=== PATIENT | male | born 1955 | race Caucasian/White ===

== ENCOUNTER 2020-10-24 17:40 | Emergency (ER) | payer OTHER, MEDICAID ==
[~2020-10-24] VITALS: Ht 165.1 cm; Wt 64.0 kg
[2020-10-24] MEDS ORDERED: PROMETHAZINE HCL 25MG TABLET PO ONE (18:30)
[2020-10-24] MEDS ORDERED: HYDROCODONE/ACETAMINOPHEN 5/325MG TABLET PO ONE (18:30)
[2020-10-24] MEDS ORDERED: DIPHENHYDRAMINE 25MG CAPSULE PO ONE (18:30)
[2020-10-24] MEDS ORDERED: KETOROLAC 15MG/ML VIAL IV ONE (18:30)
[2020-10-24 19:10] LABS: BASOPHILS % 0.7 % (0.0-2.0); EOSINOPHILS % 0.3 % (0.0-5.0); HEMATOCRIT. 42.1 % (42.0-52.0); LYMPHOCYTES % 30.6 % (20.0-50.0); MEAN CORPUSCULAR HEMOGLOBIN 24.5 pg (28.0-32.0); MEAN CORPUSCULAR VOLUME 73.3 fL (80.0-94.0); MEAN PLATELET VOLUME 8.9 fl (7.4-10.4); MONOCYTES % 8.6 % (2.0-8.0); NEUTROPHILS % 59.8 % (40.0-76.0); PLATELET 331 x1000/uL (130-400); RED BLOOD CELL COUNT 5.74 mill/uL (4.7-6.1); RED CELL DISTRIBUTION WIDTH 21.1 % (11.6-14.6)
[2020-10-24 19:15] LABS: CHLORIDE 102 mEq/L (98-107)
[2020-10-24 19:18] LABS: PROTHROMBIN TIME 11.1 sec (9.6-11.0)
[2020-10-24 19:22] LABS: ETHANOL BLOOD < 10 mg/dL
[2020-10-24 19:24] LABS: LDL CHOLESTEROL 162 mg/dL (5-100)
[2020-10-24 20:19] LABS: CLARITY URINE CLEAR (CLEAR); COLOR URINE YELLOW (YELLOW); KETONES URINE NEGATIVE (NEGATIVE); LEUKOCYTE ESTERASE URINE NEGATIVE (NEGATIVE); NITRITE URINE NEGATIVE (NEGATIVE); OCCULT BLOOD URINE TRACE (NEGATIVE); PH URINE 7.5 (4.5-8.0); PROTEIN URINE NEGATIVE (NEGATIVE); SPECIFIC GRAVITY URINE 1.005 (1.005-1.030); UROBILINOGEN URINE 0.2 E.U./dL (0.2-1.0)
[2020-10-24] MEDS ORDERED: POTASSIUM CHLORIDE 20MEQ TABLET SR PO ONE (21:00)
[2020-10-24 21:11] LABS: *AMPHETAMINES SCREEN URINE NEGATIVE (NEGATIVE); *BARBITURATES SCREEN URINE NEGATIVE (NEGATIVE); *BENZODIAZEPINES SCREEN URINE NEGATIVE (NEGATIVE); *COCAINE SCREEN URINE NEGATIVE (NEGATIVE)
[2020-10-24 21:12] LABS: CANNABINOID URINE SCREEN NEGATIVE (NEGATIVE); METHADONE URINE SCREEN NEGATIVE (NEGATIVE); OPIATES URINE SCREEN NEGATIVE (NEGATIVE); PHENCYCLIDINE URINE SCREEN NEGATIVE (NEGATIVE)
[2020-10-24] MEDS ORDERED: APIXABAN 5 MG TABLET PO ONE (21:15)
[2020-10-24] MEDS ORDERED: CARVEDILOL 12.5MG TABLET PO ONE (21:15)
[2020-10-24] MEDS ORDERED: AMIODARONE HCL 200 MG TABLET PO ONE (21:15)
[2020-10-24] MEDS ORDERED: ONDA4TAB5 MT (21:29)
[2020-10-24] MEDS ORDERED: IOHEXOL-350 100 ML BOTTLE ONE (21:45)
[2020-10-24 21:48] VITALS: BP 147/90
== END 2020-10-24 22:16 | disposition home or self-care (01) ==
LOC: ER 18:18 → CANBEDREQ 22:44
DX: G43.909 Migraine, unspecified, not intractable, without status migrainosus (principal); E11.65 Type 2 diabetes mellitus with hyperglycemia; I11.0 Hypertensive heart disease with heart failure; I50.9 Heart failure, unspecified; N17.0 Acute kidney failure with tubular necrosis; E87.6 Hypokalemia; I48.91 Unspecified atrial fibrillation; R74.01 Elevation of levels of liver transaminase levels; E78.00 Pure hypercholesterolemia, unspecified; Z20.822 Contact with and (suspected) exposure to COVID-19; Z79.01 Long term (current) use of anticoagulants; Z91.14 Patient's other noncompliance with medication regimen
CPT/HCPCS: 36415; 70450; 70496; 70498; 71045; 80053; 80305; 80320; 81003; 82962; 83721; 84484; 85025; 85610; 93005; 96374; 99285; J1885; Q0163; Q0169; Q9967; G0480